=== PATIENT | male | born 1985 ===

== ENCOUNTER 2021-12-10 17:55 | Emergency (ER) | payer BC ==
[2021-12-10] MEDS ORDERED: Sodium Chloride 0.9% 1,000 ML IV ONE (18:25)
[2021-12-10] MEDS ORDERED: HYDROmorphone 2 MG/ML Syringe IV ONE (18:25)
[2021-12-10] MEDS ORDERED: Ondansetron 4 MG/2 ML SDV IVPUSH ONE (18:25)
[2021-12-10] MEDS ORDERED: Acetaminophen/HYDROcodone 325-10 MG Tab PO ONE (22:00)
== END 2021-12-10 22:20 | disposition home or self-care (01) ==
LOC: MW.ED 17:55
DX: M23.92 Unspecified internal derangement of left knee (principal)
CPT/HCPCS: 20610; 73560; 96374; 96375; 99283; A9270; J1170; J2405; J7030